=== PATIENT | female | born 1950 | race Caucasian/White ===

== ENCOUNTER 2018-05-18 10:15 | Emergency (ER) | payer OTHER, MEDICARE ==
[~2018-05-18] VITALS: Ht 175.3 cm; Wt 86.5 kg
[2018-05-18 10:27] VITALS: BP 148/77
[2018-05-18 11:52] LABS: BASOPHILS # (AUTO) 0.03 x10^3/uL (0-0.1); BASOPHILS % (AUTO) 0 % (0-1); EOSINOPHILS # (AUTO) 0.03 x10^3/uL (0-0.4); EOSINOPHILS % (AUTO) 0 % (1-7); LYMPHOCYTES # (AUTO) 2.19 x10^3/uL (1-3.4); LYMPHOCYTES % (AUTO) 26 % (22-44); MD NO; MEAN CORPUSCULAR HEMOGLOBIN 30.2 pg (27.0-34.8); MEAN CORPUSCULAR VOLUME 91.7 fL (80-100); MEAN PLATELET VOLUME 9.1 fL (7.4-10.4); MONOCYTES # (AUTO) 0.66 x10^3/uL (0.2-0.8); MONOCYTES % (AUTO) 8 % (2-9); NEUTROPHILS # (AUTO) 5.45 x10^3/uL (1.8-6.8); NEUTROPHILS % (AUTO) 65 % (42-75); PLATELET COUNT 243 x10^3/uL (130-400); RED BLOOD COUNT 4.79 x10^6/uL (3.82-5.3); RED CELL DISTRIBUTION WIDTH 13.7 % (9.6-15.2)
[2018-05-18] MEDS ORDERED: KETOROLAC 30 MG/1 ML IM ONE (12:00)
== END 2018-05-18 12:17 | disposition home or self-care (01) ==
LOC: ED 12:11
DX: L03.116 Cellulitis of left lower limb (principal)
CPT/HCPCS: 36415; 85025; 99284

== ENCOUNTER → 2019-02-28 | Outpatient (CLI) | payer MEDICARE | END | disposition home or self-care (01) | LOC: CFH 09:55 | PROVIDERS: ATTEND Family Medicine | DX: M47.816 Spondylosis without myelopathy or radiculopathy, lumbar region (principal); M48.07 Spinal stenosis, lumbosacral region; M54.9 Dorsalgia, unspecified; M25.551 Pain in right hip | CPT/HCPCS: 72100 ==

== ENCOUNTER 2019-06-14 11:11 | Emergency (ER) | payer MEDICARE ==
[~2019-06-14] VITALS: Ht 175.3 cm; Wt 75.0 kg
[2019-06-14 11:15] VITALS: BP 127/70
--- NOTE | 2019-06-14 11:32 | NUR ---
RN to bedside, patient alert, oriented answers questions clearly and concisely. Patient reports having some left foot pain and while favoring her right leg feels she "twisted" wrong and now feels there is swelling. RN educated patient on the need to disrobe for provider to provide accurate assessment. patient removed pants and changed into hospital gown. Awaiting assessment and orders from provider.
== END 2019-06-14 13:00 | disposition home or self-care (01) ==
LOC: ED 11:42
DX: S83.411A Sprain of medial collateral ligament of right knee, initial encounter (principal); L03.116 Cellulitis of left lower limb; W18.30XA Fall on same level, unspecified, initial encounter; Y93.89 Activity, other specified; Y92.009 Unspecified place in unspecified non-institutional (private) residence as the place of occurrence of the external cause; Y99.8 Other external cause status
CPT/HCPCS: 29505; 99284

== ENCOUNTER 2020-10-19 15:57 | Emergency (ER) | payer MEDICARE ==
[~2020-10-19] VITALS: Ht 175.3 cm; Wt 91.3 kg
[2020-10-19 16:00] VITALS: BP 156/75
[2020-10-19] MEDS ORDERED: KETOROLAC 30 MG/1 ML ONE (16:59)
[2020-10-19 17:00] LABS: BASOPHILS % (AUTO) 1 % (0-1); EOSINOPHILS % (AUTO) 1 % (1-7); LYMPHOCYTES % (AUTO) 25 % (22-44); MEAN CORPUSCULAR HEMOGLOBIN 29.8 pg (27.0-34.8); MONOCYTES % (AUTO) 7 % (2-9); NEUTROPHILS % (AUTO) 67 % (42-75); PLATELET COUNT 254 x10^3/uL (130-400); RED BLOOD COUNT 4.78 x10^6/uL (3.82-5.3); RED CELL DISTRIBUTION WIDTH 13.6 % (9.6-15.2)
[2020-10-19] MEDS ORDERED: KETOROLAC 30 MG/1 ML IM ONE (17:00)
== END 2020-10-19 17:18 | disposition home or self-care (01) ==
LOC: ED 16:27
DX: M10.071 Idiopathic gout, right ankle and foot (principal)
CPT/HCPCS: 36415; 73630; 85025; 96372; 99284; J1885